=== PATIENT | male | born 1950 | race Caucasian/White ===

== ENCOUNTER → 2016-12-24 | Outpatient (CLI) | payer OTHER, MEDICARE | LOC: BMCIMAGING 09:29 | PROVIDERS: ATTEND Orthopaedic Surgery | PROC: 3E0U3KZ Introduction of Other Diagnostic Substance into Joints, Percutaneous Approach (ICD-10-PCS; principal; 2016-12-24) | DX: M16.11 Unilateral primary osteoarthritis, right hip (principal) ==

== ENCOUNTER → 2017-03-21 | Outpatient (CLI) | payer OTHER, MEDICARE | LOC: FIMAGING 06:41 | PROVIDERS: ATTEND Family Medicine | DX: M51.36 Other intervertebral disc degeneration, lumbar region (principal); M47.896 Other spondylosis, lumbar region; M48.06 Spinal stenosis, lumbar region ==

== ENCOUNTER → 2017-05-17 | Outpatient (CLI) | payer OTHER, MEDICARE | LOC: FIMAGING 14:20 | PROVIDERS: ATTEND Family Medicine | DX: M25.561 Pain in right knee (principal) ==

== ENCOUNTER → 2017-06-03 | Outpatient (CLI) | payer OTHER, MEDICARE | LOC: FIMAGING 09:42 | PROVIDERS: ATTEND Physician Assistant | DX: M48.06 Spinal stenosis, lumbar region (principal); M99.73 Connective tissue and disc stenosis of intervertebral foramina of lumbar region; M51.26 Other intervertebral disc displacement, lumbar region; M51.27 Other intervertebral disc displacement, lumbosacral region; Z98.890 Other specified postprocedural states ==

== ENCOUNTER → 2018-03-03 | Outpatient (CLI) | payer OTHER, MEDICARE | LOC: FIMAGING 10:40 | PROVIDERS: ATTEND Family Medicine | DX: M48.07 Spinal stenosis, lumbosacral region (principal); M53.86 Other specified dorsopathies, lumbar region; M51.87 Other intervertebral disc disorders, lumbosacral region ==

== ENCOUNTER → 2018-03-13 | Outpatient (CLI) | payer OTHER, MEDICARE | LOC: BHCLAF 11:00 | PROVIDERS: ATTEND Internal Medicine Cardiovascular Disease | DX: R55 Syncope and collapse (principal); E78.5 Hyperlipidemia, unspecified; I10 Essential (primary) hypertension | CPT/HCPCS: 93005-PO ==

== ENCOUNTER → 2018-04-04 | Outpatient (CLI) | payer OTHER, MEDICARE | LOC: BHCLAF 13:15 | PROVIDERS: ATTEND Internal Medicine Interventional Cardiology | DX: I10 Essential (primary) hypertension (principal) | CPT/HCPCS: 93306-PO ==

== ENCOUNTER 2019-04-06 15:46 | Inpatient (IN) | payer OTHER, MEDICARE | END 2019-04-08 13:23 | disposition home or self-care (01) | LOC: F3N 04-07 11:21 → FSGY 17:10 → F2N 17:20 ==

== ENCOUNTER → 2019-04-06 | Outpatient (CLI) | payer OTHER, MEDICARE | LOC: EMCIMAGING 12:38 ==